=== PATIENT | female | born 1980 | race Caucasian/White ===

== ENCOUNTER 2024-01-29 13:55 | Emergency (ER) | payer OTHER, SELFPAY ==
[2024-01-29 13:57] VITALS: BP 166/91
[2024-01-29 14:17] LABS: % Basophils 0.9 % (0-2); % Eosinophils 0.4 % (0-6); % Immature Granulocytes 0.3 % (0-0.5); % Monocytes 5.9 % (1.7-9.3); % Neutrophils 68.5 % (42.2-75.2); Absolute Basophils 0.1 10^3/uL (0-0.2); Absolute Lymphocytes 2.7 10^3/uL (1.2-3.4); Absolute Monocytes 0.7 10^3/uL (0.1-0.6); Absolute Neutrophils 7.6 10^3/uL (1.4-6.5); Hematocrit 41.4 % (37.0-47.0); Hemoglobin 14.2 g/dL (12.0-16.0); Mean Corp Hgb Conc. 34.3 g/dL (33.0-37.0); Mean Corpuscular Hgb 29.2 pg (27.0-31.0); Mean Corpuscular Volume 85.2 fL (81.0-99.0); Mean Platelet Volume 11.2 fL (7.4-10.4); Nucleated Red Blood Cells % 0 %; Platelet Count 200 10^3/uL (130-400); Red Blood Cell Count 4.86 10^6/uL (4.20-5.40); Red Cell Dist. Width 13.4 % (11.5-14.5); White Blood Cell Count 11.1 10^3/uL (4.8-10.8)
[2024-01-29 14:28] LABS: HCG, Serum Qualitative Screen Negative
[2024-01-29 14:33] LABS: ALT (SGPT) 15 U/L (0-35); AST (SGOT) 28 U/L (14-36); Albumin 4.6 g/dl (3.5-5.0); Alkaline Phosphatase 57 U/L (38-126); Blood Urea Nitrogen 21 mg/dl (7-17); Calcium 9.5 mg/dl (8.4-10.2); Carbon Dioxide 21 mmol/L (22-30); Chloride 106 mmol/L (98-107); Glucose 92 mg/dl (70-99); Potassium 4.2 mmol/L (3.5-5.1); Sodium 140 mmol/L (135-145); Total Bilirubin 0.4 mg/dl (0.2-1.3); Total Protein 7.2 g/dl (6.3-8.2); eGFR > 60.00
--- NOTE | 2024-01-29 16:00 | EDRN ---
Gera Aguila PA was in to see pt
--- NOTE | 2024-01-29 16:18 | EDRN ---
Gera Aguila PA in to see pt at this time.
[2024-01-29 16:20] VITALS: BMI 28.2
[2024-01-29 16:24] VITALS: BP 110/72
[2024-01-29 18:00] VITALS: BP 100/53
--- NOTE | 2024-01-29 18:27 | ED.GENMED ---
History of Present Illness
General
Chief Complaint: Rectal Bleeding
Time Seen by Provider: 01/29/24 15:57
History of Present Illness
History of Present Illness:
43-year-old female presents for evaluation of blood in her bowel movement this morning. Denies any rectal bleeding in her underwear. First time this is occurred since having hemorrhoids when she was . She also notes persistent right
gluteal pain for the past 3 months, not worse when walking, no fevers or night sweats
Past History
Past History
ED Past Medical History: None
ED Past Surgical History: and Other (Breast Reduction. )
Social History
Tobacco: Non-smoker
Alcohol: None
Personal:
Living: with family
Review of Systems
Review of Systems
Allergies reviewed?: Yes
All Other Systems: ROS reviewed and negative except as documented in HPI and ROS
Phy Exam
Physical Exam
Physical Exam:
GEN: Well appearing, NAD, WDWN
HEENT: Oral mucosa moist, no scleral icterus
Cardiac: Regular rate
Lung: No respiratory distress, no tachypnea
Rectal: Trace blood associated with a nonthrombosed external hemorrhoid at the 7 o'clock position, internal rectal exam without evidence for fissures or masses. No pilonidal abscess.
MSK: No gross deformity or injuries. Reproducible tenderness to the mid right gluteal region with no palpable deformity
Skin: Good color, no pallor or jaundice, no rashes
Neuro: AO x3, moves all extremities freely
Psych: Calm, cooperative
Course
Orders/Labs/Results
Orders:
Orders
01/29/24
CR Pelvis - 1 Or 2 Views Urgent
Reason For Exam: LT GLUTEAL PAIN
01/29/24 13:59
Test Result ONCE
01/29/24 14:07
Type+Screen Urgent
Complete Blood Count/With Diff Urgent
Comprehensive Metabolic Panel Urgent
HCG, Serum Qualitative Screen Urgent
Abnormal Lab Results
01/29/24
14:07
WBC 11.1 H 10^3/uL
(4.8-10.8)
MPV 11.2 H fL
(7.4-10.4)
Absolute Neuts (auto) 7.6 H 10^3/uL
(1.4-6.5)
Absolute Monos (auto) 0.7 H 10^3/uL
(0.1-0.6)
Carbon Dioxide 21 L mmol/L
(22-30)
BUN 21 H mg/dl
(7-17)
01/29/24 14:07
01/29/24 14:07
Vital Signs
Initial and Last Documented VS:
Initial Vital Signs
Temp Pulse Resp BP Pulse Ox
98.4 F 84 20 166/91 98
01/29/24 13:57 01/29/24 13:57 01/29/24 13:57 01/29/24 13:57 01/29/24 13:57
Last Documented Vital Signs
Temp Pulse Resp BP Pulse Ox
98.4 F 73 14 100/53 99
01/29/24 13:57 01/29/24 18:00 01/29/24 18:00 01/29/24 18:00 01/29/24 18:00
MDM/Problems Addressed
MDM/Problems Addressed:
Rectal bleeding likely due to hemorrhoid on exam, labs are reassuring. Discussed supportive care for this. Unclear cause of her persistent gluteal pain, pelvic x-rays are unremarkable
*Critical Care Note
Total Time (30-74mins, 75-104mins- exclusive of procedures): Not Applicable
ED Attending Note
-
Portions of this chart may have been created with voice recognition software.� Occasional wrong word or��sound alike� substitutions may have occurred due to the inherent limitations of voice recognition software.
Discharge Plan
Departure
Patient Disposition: Home (Routine Discharge)
Date of Disposition: 01/29/24
Time of Disposition: 18:27
Patient with high blood pressure during this ER visit?: No
Discharge Problem:
External hemorrhoid, Gluteal pain
Instructions: Hemorrhoids (DC), How to Do a Sitz Bath
Prescriptions:
No Action
acetaminophen 325 MG tablet
650 mg PO Q4HPRN PRN (Reason: mild pain) 0RF
sennosides-docusate sodium 1 TABLET tablet
1 tab PO DAILYPRN PRN (Reason: constipation) 0RF
oxycodone-acetaminophen 5 MG/325 MG tablet
1 tab PO Q4HPRN PRN (Reason: moderate pain) Qty: 10 0RF
ibuprofen 600 MG tablet
600 mg PO Q6HPRN PRN (Reason: cramps) Qty: 30 0RF
simethicone [Gas Relief 80 (simethicone)] 80 MG tablet,chewable
80 mg PO TIDPRN PRN (Reason: flatulence) 0RF
Referrals:
Gordon Garcia MD [Family Provider] -
Vanessa Pruitt MD [Active] -
Activity Restrictions/Additional Instructions:
Increase fiber to 25-35 mg per day
Use topical products such as Preparation H or Tucks pads if rectal pain develops
If bleeding does not improve in 7-10 days, follow up with gastroenterology
Regarding your persistent pain in the buttock, please follow up with your primary care provider
Interventions
Interventions:
*Risk Screen - Suicide Last Done: 01/29/24 16:20
*General Assessment Last Done: 01/29/24 13:57
*Neglect/Abuse Screening Last Done: 01/29/24 16:20
ED- Fall Risk Assessment Last Done: 01/29/24 16:20
*ED COVID-19 Vaccine History Last Done: 01/29/24 16:20
*Nursing Disposition Last Done: 01/29/24 18:36
RW-Svyltn-Lqhhelwjnj Assessment Last Done: 01/29/24 16:21
ED- Cardiac Assessment Last Done: 01/29/24 16:21
ED- Pulmonary Assessment Last Done: 01/29/24 16:21
Discharge Date and Time
Discharge Date/Time: 01/29/24 18:37
Print Language: JAPANESE
--- NOTE | 2024-01-29 18:35 | EDRN ---
Pt discharged solely by Gera keyes this time.
== END 2024-01-29 18:37 | disposition home or self-care (01) ==
LOC: EMR 13:55
PROVIDERS: Emergency Medicine; EMERGENCY PHYSICIAN Emergency Medicine; FAMILY PHYSICIAN Family Medicine
DX: K64.4 Residual hemorrhoidal skin tags (principal)
CPT/HCPCS: 99283; 72170; 80053; 84703; 85025; 86850; 86900; 86901